=== PATIENT | female | born 1985 | race Caucasian/White ===

== ENCOUNTER 2020-05-06 17:19 | Inpatient (IN) | payer BC ==
[~2020-05-06] VITALS: Ht 162.6 cm; Wt 65.8 kg
[2020-05-06 17:52] VITALS: Ht 162.6 cm; Wt 65.8 kg
[2020-05-06 18:17] LABS: microscopic required? NO
[2020-05-06 18:52] LABS: UA SPECIFIC GRAVITY 1.015 (1.005-1.035); urine erythrocyte NEGATIVE (NEGATIVE)
[2020-05-06 18:57] LABS: BASOPHIL % 0.2 % (0.2-1.3); PLATELET COUNT 215 x10^3mcL (179-408); RED CELL DISTRIBUTION WIDTH 13.5 % (12.3-17.7)
[2020-05-06 19:17] LABS: CARBON DIOXIDE 26.4 mmol/L (21-32); CHLORIDE SERUM 98 mmol/L (98-107); CREATININE SERUM 0.9 mg/dL (0.6-1.0); GFR1 > 60 mL/min; GLUCOSE SERUM 98 mg/dL (74-106); POTASSIUM SERUM 3.8 mmol/L (3.5-5.1); SODIUM SERUM 134 mmol/L (136-145)
[2020-05-06 19:21] LABS: ALBUMIN 3.9 g/dL (3.4-5.0); ALKALINE PHOSPHATASE 130 U/L (46-116); ALT/SGPT 45 U/L (14-59); AST/SGOT 15 U/L (15-37); BILIRUBIN TOTAL 0.54 mg/dL (0.20-1.00); LIPASE 160 IU/L (73-393); TOTAL PROTEIN, SERUM 7.9 g/dL (6.4-8.2)
[2020-05-06] MEDS ORDERED: BIRTH CONTROL (20:24)
[2020-05-06 23:52] VITALS: BP 115/66
[2020-05-07 04:00] VITALS: BP 101/56
[2020-05-07 07:00] VITALS: BP 97/54
[2020-05-07 10:24] LABS: BASOPHIL % 0.4 % (0.2-1.3); PLATELET COUNT 227 x10^3mcL (179-408); RED CELL DISTRIBUTION WIDTH 13.4 % (12.3-17.7)
[2020-05-07 10:39] LABS: CALCIUM 8.7 mg/dL (8.5-10.1); CARBON DIOXIDE 25.5 mmol/L (21-32); CHLORIDE SERUM 101 mmol/L (98-107); CREATININE SERUM 0.9 mg/dL (0.6-1.0); GFR1 > 60 mL/min; GLUCOSE SERUM 148 mg/dL (74-106); MAGNESIUM 2.1 mg/dL (1.8-2.4); PHOSPHOROUS 3.9 mg/dL (2.5-4.9); POTASSIUM SERUM 4.2 mmol/L (3.5-5.1); SODIUM SERUM 134 mmol/L (136-145)
[2020-05-07] MEDS ORDERED: NORCO1 TA2 PO (11:35)
[2020-05-07 12:00] VITALS: BP 109/46
[2020-05-07 13:49] VITALS: BP 109/57
== END 2020-05-07 13:35 | disposition home or self-care (01) | DRG 339 ==
LOC: ED 17:19 → MU 20:08
PROVIDERS: Emergency Medicine; Surgery; ADMIT Internal Medicine; ATTEND Internal Medicine
PROC: 0DTJ4ZZ Resection of Appendix, Percutaneous Endoscopic Approach (ICD-10-PCS; principal; 2020-05-06 21:00)
DX: K35.32 Acute appendicitis with perforation, localized peritonitis, and gangrene, without abscess (principal); E87.1 Hypo-osmolality and hyponatremia; Z20.822 Contact with and (suspected) exposure to COVID-19
CPT/HCPCS: G0378; J0696; J2175; J2250; J2405; J2543; J3010; J3490; J7030; U0003